=== PATIENT | male | born 2000 | race Caucasian/White ===

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

== ENCOUNTER 2023-02-10 09:15 | Outpatient (CLI) | payer MEDICAID | END 2023-02-10 09:30 | disposition home or self-care (01) | LOC: LAB.N 09:15 | PROVIDERS: ATTEND Physician Assistant Medical | DX: B02.9 Zoster without complications (principal) | CPT/HCPCS: 87252 ==